=== PATIENT | male | born 1970 | race African-American/Black ===

== ENCOUNTER 2016-11-07 12:41 | Emergency (ER) ==
[2016-11-07] MEDS ORDERED: MOTRIN PO ONE (13:40)
[2016-11-07] MEDS ORDERED: CATAPRES PO ONE (13:40)
--- NOTE | 2016-11-07 13:46 | PROVIDER DOCUMENTATION ---
HPI-General Adult - General Chief Complaint: B/P Problems Stated Complaint: B/P PROBLEMS Time Seen by Provider: 11/07/16 13:14 Source: patient Allergies/Adverse Reactions: Patient Allergies Allergy/AdvReac Type Severity Reaction Status Date / Time No Known Allergies Allergy Verified 11/07/16 12:49 Home Medications: Home Medication List Medication Instructions Recorded Confirmed Last Taken Type No Home Medications 11/07/16 11/07/16 Unknown History - History of Present Illness -Gen Adult Nature of Presenting Problems: Reports to er with cc of hypertension x 1 month. 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 Reports was told come to er. Pt denies having any signs or symptoms of hypertension but he needs it fixed. Location of Pain/Injury: reports: generalized Quality of Pain: reports: none Severity: reports: mild Onset/Duration: reports: other (1 mo) Timing: reports: still present Similar Symptoms Previously?: Yes Recently seen or treated by another doctor?: Yes Review of Systems - Adult - REVIEW OF SYSTEMS - ADULT Constitutional: reports: see HPI. denies: chills, fever, fatique Eyes: reports: no symptoms reported Ears, Nose, Mouth & Throat: denies: ear pain, sinus problem, throat pain Cardiovascular: denies: chest pain, irregular heart rate, orthopnea Respiratory: reports: no symptoms reported Gastrointestinal: reports: no symptoms reported Genitourinary: reports: no symptoms reported Musculoskeletal: reports: no symptoms reported Integumentary: reports: no symptoms reported Neurological: reports: see HPI. denies: dizziness/vertigo, headache/migraines, loss of balance, numbness, paresthesia Psychiatric: reports: no symptoms reported Endocrine: reports: no symptoms reported Hematologic/Lymphatic: reports: no symptoms reported Allergic/Immunologic: reports: no symptoms reported All Other Systems: Reviewed and Negative Past History - Adult - PAST MEDICAL HISTORY-ADULT Review of Records: reports: Nursing Assessment Review Major Childhood Illnesses: reports: denies history - IMMUNIZATION STATUS Childhood Immunizations: See Nurse Assessment Flu Vaccine: See Nurse Assessment - SOCIAL HISTORY Smoking: denies Substance Use: none/never Physical Exam-General - PHYSICAL EXAM-ADULT Initial Vital Signs Reviewed: Yes (on exam pt bp is 151/111) - CONSTITUTIONAL General Appearance: appears well, alert, no apparent distress - EYES Eyes: PERRL/EOMI - NECK Neck: non-tender, full range of motion, supple, normal inspection - RESPIRATORY Respiratory: chest non-tender, lungs clear, normal breath sounds, no pleuratic chest pain, no respiratory distress, no accessory muscle use - CARDIOVASCULAR Cardiovascular: regular rate, rhythm - GASTROINTESTINAL (ABDOMEN) Abdominal Exam: non tender, soft, no organomegaly - MUSCULOSKELETAL Back Exam: normal inspection, no CVA tenderness, no vertebral tenderness Extremity: normal range of motion, non-tender, normal gait - SKIN Integumentary: normal color, normal turgor, warm/dry - NEUROLOGIC Neurologic: grossly normal - PSYCHIATRIC Psych/Mental Status: normal mood/affect, normal thought content, normal thought process, oriented x 3 Progress - PLAN OF CARE/RESULTS Progress/Plan/Lab Results: Orders Category Date Time Status Clonidine [Catapres] Med 11/07/16 13:40 Discontinued 0.2 mg PO NOW ONE Ibuprofen [Motrin] Med 11/07/16 13:40 Discontinued 800 mg PO NOW ONE Vital Signs - 24 hr 11/07/16 11/07/16 12:46 12:59 Temperature 98.4 F 98.2 F Pulse Rate 90 83 Respiratory 18 22 Rate Blood Pressure 161/99 153/108 O2 Sat by Pulse 100 Oximetry Departure - Departure Time of Disposition Order: 14:25 DIAGNOSIS: Hypertension Qualifiers: Hypertension type: essential hypertension Qualified Code(s): I10 - Essential ( primary) hypertension Disposition: HOME 01 Certified Medical Emergency: Emergent Condition: Stable Additional Instructions: Follow up with pcp ED Follow Up Instructions: You have been treated by a care provider in the Emergency Department. These instructions are being provided to you so you can have an understanding of how to care for yourself upon discharge. Upon discharge from the Emergency Department, you are responsible for making arrangements for follow-up care by a physician of your choice. Take all prescribed medications as directed. Return to the Emergency Department immediately for any new or worsening symptoms. You may call the Physician Referral phone number at [phone] to obtain a list of Physicians who are taking new patients. Attestation - Scribe Verification/Attestation Scribe:: Collette Cabrera Acting as Scribe for:: Dannielle Meyer Scribe documention review:: This chart was documented by a scribe and accurately reflects the service the provider performed and the decisions made by the provider. Physician Attestation - Physician Attestation I, the provider, attest to the following statement:: Dannielle Meyer Physician documentation Attestation:: This documentation recorded by the scribe accurately reflects the service I personally performed and the decisions made by me.
[2016-11-07 14:34] VITALS: BP 144/98
== END 2016-11-07 14:49 | disposition home or self-care (01) ==
LOC: P.ED 12:41
DX: I10 Essential (primary) hypertension (principal)
CPT/HCPCS: 99282